=== PATIENT | female | born 1995 | race Caucasian/White ===

== ENCOUNTER 2022-04-08 19:48 | Emergency (ER) | payer OTHER ==
[~2022-04-08] VITALS: Ht 154.9 cm; Wt 52.3 kg
[2022-04-08 21:10] VITALS: BP 130/76
--- NOTE | 2022-04-08 21:17 | NUR ---
PT TO LOBBY
--- NOTE | 2022-04-08 21:19 | NUR ---
PATIENT LEFT WITHOUT BEING SEEN BY DR. Richard. NO FURTHER CARE PROVIDED FOR PATIENT.
== END 2022-04-08 21:19 | disposition left against medical advice (07) ==
LOC: MED 19:48
DX: R51.9 Headache, unspecified (principal); Z53.21 Procedure and treatment not carried out due to patient leaving prior to being seen by health care provider

== ENCOUNTER 2022-04-09 11:06 | Emergency (ER) | payer OTHER ==
--- NOTE | 2022-04-09 12:05 | NUR ---
ATTEMPTED TO TRIAGE PT, NOT FOUND IN LOBBY/OUTSIDE
--- NOTE | 2022-04-09 12:10 | NUR ---
2ND ATTEMPT, NOT FOUND IN LOBBY/OUTSIDE
--- NOTE | 2022-04-09 12:16 | NUR ---
LAST ATTEMPT, NOT FOUND IN LOBBY/OUTSIDE. PT LEFT WITHOUT BEING TRIAGED
== END 2022-04-09 12:16 | disposition left against medical advice (07) ==
LOC: MED 11:06
DX: Z53.21 Procedure and treatment not carried out due to patient leaving prior to being seen by health care provider (principal)